=== PATIENT | male | born 1985 | race African-American/Black ===

== ENCOUNTER 2023-04-09 10:22 | Inpatient (IN) | payer MEDICAID ==
[2023-04-09] VITALS (11 sets, daily range): BP systolic 152–203; BP diastolic 84–105
[~2023-04-09] VITALS: Ht 165.1 cm; Wt 78.0 kg
[2023-04-09 11:36] LABS: BASOPHILS % 0.8 % (0.0-2.0); EOSINOPHILS % 3.3 % (0.0-5.0); HEMATOCRIT. 35.5 % (42.0-52.0); HEMOGLOBIN. 11.8 g/dL (14.0-18.0); LYMPHOCYTES % 19.5 % (20.0-50.0); MEAN CORPUSCULAR HEMOGLOBIN 28.5 pg (28.0-32.0); MEAN CORPUSCULAR VOLUME 86.1 fL (80.0-94.0); MEAN PLATELET VOLUME 8.3 fl (7.4-10.4); MONOCYTES % 10.2 % (2.0-8.0); NEUTROPHILS % 66.2 % (40.0-76.0); PLATELET 261 x1000/uL (130-400); RED BLOOD CELL COUNT 4.13 mill/uL (4.7-6.1); RED CELL DISTRIBUTION WIDTH 13.6 % (11.6-14.6)
[2023-04-09 11:45] LABS: CHLORIDE 107 mEq/L (98-107)
[2023-04-09] MEDS ORDERED: SODIUM BICARBONATE 8.4% 1 MEQ/ML 50ML SYR IV ONE (12:00)
[2023-04-09] MEDS ORDERED: ALBUTEROL (0.083%) 2.5MG/3ML NEB HHN ONE (12:00)
[2023-04-09] MEDS ORDERED: CALCIUM CHLORIDE 1GM/10ML SYR IV ONE (12:00)
[2023-04-09] MEDS ORDERED: INSULIN REGULAR (HUMULIN R) 300UNITS/3ML VIAL IV ONE (12:00)
[2023-04-09] MEDS ORDERED: DEXTROSE 50% WATER 50ML SYRINGE IV ONE (12:00)
[2023-04-09] MEDS ORDERED: ONDANSETRON HCL 4MG/2ML INJ IV PRN (15:00)
[2023-04-09] MEDS ORDERED: ACETAMINOPHEN 325MG TABLET PO PRN (15:00)
[2023-04-09 15:16] LABS: HEPATITIS B SURFACE AB 6.9 mIU/mL
[2023-04-09 15:27] LABS: HEPATITIS B SURFACE ANTIGEN NEGATIVE
[2023-04-09] MEDS: CLONIDINE 0.1MG TABLET PO PRN (17:45)
[2023-04-09] MEDS: NIFEDIPINE XL 90MG TAB PO SCH (18:25)
[2023-04-09] MEDS ORDERED: DEXTROSE 50% WATER 50ML SYRINGE IV PRN (19:45)
[2023-04-09] MEDS: INSULIN LISPRO 100 UNITS/ML SUBCUT SCH (21:42)
[2023-04-09] MEDS: CARVEDILOL 12.5MG TABLET PO SCH (21:43)
[2023-04-09] MEDS: HEPARIN 5000 UNITS/ML VIAL SUBCUT SCH (21:43)
[2023-04-09] MEDS: HYDRALAZINE HCL 50MG TABLET PO SCH (21:44)
[2023-04-09] MEDS: BLOOD SUGAR DIAGNOSTIC STRIP TEST SCH (21:44)
[2023-04-10 00:52] VITALS: BP 177/91
[2023-04-10] MEDS: CLONIDINE 0.1MG TABLET PO PRN (01:23)
[2023-04-10 04:00] VITALS: BP 155/81
[2023-04-10] MEDS: HYDRALAZINE HCL 50MG TABLET PO SCH (06:29)
[2023-04-10] MEDS: BLOOD SUGAR DIAGNOSTIC STRIP TEST SCH ×4 (06:54→20:42)
[2023-04-10 07:48] LABS: BASOPHILS % 0.7 % (0.0-2.0); EOSINOPHILS % 2.7 % (0.0-5.0); HEMATOCRIT. 32.8 % (42.0-52.0); HEMOGLOBIN. 11.4 g/dL (14.0-18.0); LYMPHOCYTES % 22.5 % (20.0-50.0); MEAN CORPUSCULAR HEMOGLOBIN 29.6 pg (28.0-32.0); MEAN CORPUSCULAR VOLUME 85.4 fL (80.0-94.0); MEAN PLATELET VOLUME 8.4 fl (7.4-10.4); MONOCYTES % 10.8 % (2.0-8.0); NEUTROPHILS % 63.3 % (40.0-76.0); PLATELET 244 x1000/uL (130-400); RED BLOOD CELL COUNT 3.84 mill/uL (4.7-6.1); RED CELL DISTRIBUTION WIDTH 13.5 % (11.6-14.6)
[2023-04-10 08:00] VITALS: BP 169/89
[2023-04-10] MEDS: NIFEDIPINE XL 90MG TAB PO SCH ×2 (08:44→20:53)
[2023-04-10] MEDS: HEPARIN 5000 UNITS/ML VIAL SUBCUT SCH ×2 (08:44→20:51)
[2023-04-10] MEDS: FOLIC ACID/VITAMIN B COMP W-C TABLET PO SCH (08:44)
[2023-04-10] MEDS: CARVEDILOL 12.5MG TABLET PO SCH ×2 (08:44→18:14)
[2023-04-10] MEDS: INSULIN LISPRO 100 UNITS/ML SUBCUT SCH ×4 (08:49→20:43)
[2023-04-10 09:04] LABS: PHOSPHORUS 6.4 mg/dL (2.5-4.9)
[2023-04-10 12:00] VITALS: BP 157/79
[2023-04-10] MEDS: HYDRALAZINE HCL 100MG TABLET PO SCH ×2 (13:59→21:49)
[2023-04-10 16:00] VITALS: BP 156/82
[2023-04-10 20:00] VITALS: BP 153/77
[2023-04-11] VITALS (15 sets, daily range): BP systolic 127–172; BP diastolic 58–85
[2023-04-11] MEDS: BLOOD SUGAR DIAGNOSTIC STRIP TEST SCH ×4 (06:12→21:49)
[2023-04-11] MEDS: HYDRALAZINE HCL 100MG TABLET PO SCH ×3 (06:19→23:27)
[2023-04-11] MEDS: INSULIN LISPRO 100 UNITS/ML SUBCUT SCH ×4 (06:34→21:00)
[2023-04-11 07:16] LABS: BASOPHILS % 0.5 % (0.0-2.0); HEMATOCRIT. 32.4 % (42.0-52.0); LYMPHOCYTES % 29.8 % (20.0-50.0); MEAN CORPUSCULAR HEMOGLOBIN 28.8 pg (28.0-32.0); MEAN CORPUSCULAR VOLUME 85.2 fL (80.0-94.0); MEAN PLATELET VOLUME 8.2 fl (7.4-10.4); MONOCYTES % 13.5 % (2.0-8.0); NEUTROPHILS % 54.2 % (40.0-76.0); PLATELET 253 x1000/uL (130-400); RED BLOOD CELL COUNT 3.81 mill/uL (4.7-6.1); RED CELL DISTRIBUTION WIDTH 13.1 % (11.6-14.6)
[2023-04-11] MEDS: CARVEDILOL 12.5MG TABLET PO SCH ×2 (09:04→17:31)
[2023-04-11] MEDS: FOLIC ACID/VITAMIN B COMP W-C TABLET PO SCH (09:04)
[2023-04-11] MEDS: NIFEDIPINE XL 90MG TAB PO SCH ×2 (09:05→21:42)
[2023-04-11] MEDS: HEPARIN 5000 UNITS/ML VIAL SUBCUT SCH ×2 (09:05→21:44)
[2023-04-12] VITALS: BP 164/89
[2023-04-12] MEDS: CLONIDINE 0.1MG TABLET PO PRN (03:19)
[2023-04-12 04:00] VITALS: BP 161/87
[2023-04-12] MEDS: HYDRALAZINE HCL 100MG TABLET PO SCH ×2 (06:13→13:01)
[2023-04-12] MEDS: BLOOD SUGAR DIAGNOSTIC STRIP TEST SCH ×2 (06:14→11:50)
[2023-04-12] MEDS: INSULIN LISPRO 100 UNITS/ML SUBCUT SCH ×2 (06:15→12:20)
[2023-04-12 08:15] VITALS: BP 150/79
[2023-04-12] MEDS: NIFEDIPINE XL 90MG TAB PO SCH (09:28)
[2023-04-12] MEDS: HEPARIN 5000 UNITS/ML VIAL SUBCUT SCH (09:28)
[2023-04-12] MEDS: FOLIC ACID/VITAMIN B COMP W-C TABLET PO SCH (09:28)
[2023-04-12] MEDS: CARVEDILOL 12.5MG TABLET PO SCH (09:29)
[2023-04-12 12:00] VITALS: BP 153/91
== END 2023-04-12 14:02 | disposition left against medical advice (07) | DRG 194 ==
LOC: ER 10:22 → 3WST 12:46 → EDBEDREQ 12:59 → EDBEDREQTM 12:59
PROVIDERS: ADMIT Internal Medicine; ATTEND Internal Medicine
PROC: 5A1D70Z Performance of Urinary Filtration, Intermittent, Less than 6 Hours Per Day (ICD-10-PCS; principal; 2023-04-10)
DX: I13.2 Hypertensive heart and chronic kidney disease with heart failure and with stage 5 chronic kidney disease, or end stage renal disease (principal); N18.6 End stage renal disease; E11.22 Type 2 diabetes mellitus with diabetic chronic kidney disease; E87.1 Hypo-osmolality and hyponatremia; N25.81 Secondary hyperparathyroidism of renal origin; D63.1 Anemia in chronic kidney disease; I16.0 Hypertensive urgency; E87.5 Hyperkalemia; E55.9 Vitamin D deficiency, unspecified; H53.8 Other visual disturbances; F17.210 Nicotine dependence, cigarettes, uncomplicated; I50.9 Heart failure, unspecified; Z20.822 Contact with and (suspected) exposure to COVID-19; Z99.2 Dependence on renal dialysis; Z79.899 Other long term (current) drug therapy; Z63.4 Disappearance and death of family member; Z82.49 Family history of ischemic heart disease and other diseases of the circulatory system
CPT/HCPCS: 36415; 71045; 80048; 80053; 82962; 83036; 84100; 84484; 85025; 86705; 86706; 86709; 86803; 87340; 87426; 90935; 93005; 99291; J1644; J1815; J3490